=== PATIENT | male | born 1995 | race African-American/Black ===

== ENCOUNTER 2016-12-29 08:14 | Emergency (ER) | payer SELFPAY ==
--- NOTE | ~2016-12-29 | EKG ---
PATIENT: POLLY WALLACE UNIT #: [id number] Ventricular Rate: 53 BPM Atrial Rate: 53 BPM P-R Interval: 154 ms QRS Duration: 82 ms Q-T Interval: 394 ms QTC Calculation(Bezet): 369 ms P Matador: 69 degrees Calculated R Matador: 75 degrees Calculated T Matador: 48 degrees Diagnosis Line: Sinus bradycardia with sinus arrhythmia Diagnosis Line: Otherwise normal ECG Diagnosis Line: When compared with ECG of 09-JUN-2016 19:04, Diagnosis Line: No significant change was found Diagnosis Line: Confirmed by RADHA BURR MD ([id number]) on Diagnosis Line: 01/01/2017 1:49:26 PM INTERPRETING MD: AMINAH AMBROSIO
--- NOTE | ~2016-12-29 | CR72 ---
[facility] A Service of [facility] RADIOLOGY TEXT RESULTS PATIENT: POLLY WALLACE LOCATION: SED : [birth year] UNIT #: [id number] AGE: [address]: Husam Mitchell MD SEX: M ORDER DR: [id number] [address] [place] [id number] MR#: [id number] Acc #: [id number] NAME: POLLY WALLACE : 1995 SEX: M STUDY DATE/TIME: 12/29/2016 8:35 UNIT: SED ROOM: STUDY DESCRIPTION: CR Chest Single View Portable Attending Physician: Husam Mitchell M.D. Ordering Physician: Husam Mitchell M.D. Primary Care Physician: No Primary Care Physician MEDICAL IMAGING REPORT This report is preliminary unless electronic signature is present. EXAM Portable chest x-ray, 12/29/2016. HISTORY Chest pain, chest tightness. Cannot breathe. History of asthma. Chest pain began at 11 p.m. last night. TECHNIQUE AP radiograph of the chest is presented. COMPARISON None FINDINGS The lungs are somewhat hyperinflated, likely reflecting the patient's staged history of asthma. No evidence of acute infectious or inflammatory disease, pleural effusion, or pneumothorax. No suspicious nodule. Heart and mediastinum are normal in size and contour. Bony structures unremarkable. Dictated by... Darien Andrade M.D. THIS IS AN ELECTRONICALLY VERIFIED REPORT Darien Andrade M.D. at 01/01/2017 12:58 PM FRED/jaylon TD: 12/29/2016 17:36 JOB #: [id number] [facility] A Service of [facility] RADIOLOGY TEXT RESULTS PATIENT: POLLY WALLACE LOCATION: SED : [birth year] UNIT #: [id number] AGE: [address]: Husam Mitchell MD SEX: M ORDER DR: MEDICAL IMAGING REPORT Page 1 of 1
[2016-12-29] MEDS ORDERED: NO MEDICATIONS (08:21)
== END 2016-12-29 10:06 | disposition home or self-care (01) ==
LOC: SED 08:14
DX: J98.01 Acute bronchospasm (principal); R09.1 Pleurisy; F17.210 Nicotine dependence, cigarettes, uncomplicated; Z88.0 Allergy status to penicillin; Z88.1 Allergy status to other antibiotic agents
CPT/HCPCS: 71010; 93005; 94640; 99285